=== PATIENT | male | born 1945 | race Caucasian/White ===

== ENCOUNTER 2025-01-14 20:32 | Emergency (ER) | payer OTHER ==
[~2025-01-14 20:32] MED LIST: Iopamidol 300 61% 100 ML VIAL FS ONE
[2025-01-14 22:14] LABS: #Basophils Less than 0.03 10x3/uL (0.0-0.2); #Eosinophils Less than 0.03 10x3/uL (0.0-0.5); #Monocytes 0.18 10x3/uL (0.0-1.1); #Neutrophils 7.52 10x3/uL (1.5-8.4); %Basophils 0.1 % (0.0-2.0); %Eosinophils 0.1 % (0.0-6.0); %Lymphocytes 0.8 % (18.0-47.0); %Monocytes 2.3 % (0.0-10.0); %Neutrophils 96.4 % (40.0-75.0); Hematocrit 36.9 % (38.8-50.0); Hemoglobin 12.0 g/dL (13.5-17.5); Mean Corpuscular Hemoglobin 28.6 pg (27.0-33.0); Mean Corpuscular Volume 87.9 fL (81.2-95.1); Platelet Count 266 10x3/uL (150-450); Red Blood Cell (RBC) Count 4.20 10x6/uL (4.32-5.72); White Blood Cell (WBC) Count 7.80 10x3/uL (3.5-10.5)
[2025-01-14 22:14] LABS: Actual Bicarbonate (HCO3v) 19.2 mEq/L (22-28); Analyzer IN Cardio CS ER; Base Excess -6.1 mEq/L (-2 - +2); Calcium, Ionized (venous) 1.07 mmol/L (1.16-1.32); Chloride (VBG) 101 mmol/L (98-106); Hematocrit-VBG 37 % (42.0-52.0); Hemoglobin (Hb) 12.5 g/dL (12.6-17.4); Potassium (VBG) 4.51 mmol/L (3.70-5.30); Puncture Site Other Site; RapidComm Collect By Lab; Sodium 135 mmol/L (133-146)
[2025-01-14 22:29] LABS: ALT (SGPT) 35 U/L (Less than 45); AST (SGOT) 45 U/L (11-34); Albumin 3.7 g/dL (3.1-4.5); Alkaline Phosphatase 55 U/L (40-110); Anion Gap 18 mmol/L (10-20); BUN (Urea Nitrogen) 29 mg/dL (8.4-25.7); Bilirubin, Total 0.4 mg/dL (0.3-1.2); Calc. Creatinine Clearance 0 mL/min (70-130); Calcium 8.7 mg/dL (7.8-10.44); Carbon Dioxide 18 mmol/L (23-31); Chloride 103 mmol/L (98-107); Globulin 2.5 g/dL (2.4-3.5); Glucose 314 mg/dL (83-110); Potassium 4.4 mmol/L (3.5-5.1); Sodium 135 mmol/L (136-145)
[2025-01-14] MEDS ORDERED: Cefepime 2 GM VIAL ONE (22:44)
[2025-01-14] MEDS ORDERED: Vancomycin 1.5 GRAM/300 ML BAG 1.5 GM in Premix 1 BAG IVPB SCH (23:45)
[2025-01-15] MEDS ORDERED: Acetaminophen 500 MG TAB ONE (02:02)
== END 2025-01-15 03:29 | disposition short-term general hospital (02) ==
LOC: CSHERS 20:32 → MERGE 20:32 → CSHERS 01-15 03:29
DX: R65.20 Severe sepsis without septic shock (principal); L03.113 Cellulitis of right upper limb; E11.9 Type 2 diabetes mellitus without complications
CPT/HCPCS: 36415; 36416; 80053; 82805; 83605; 85025; 87040; 96374; 96375; J0692; J2270; J3373; Q9967

== ENCOUNTER 2025-02-22 09:05 | Outpatient (CLI) | payer OTHER | END 2025-02-22 09:06 | disposition home or self-care (01) | LOC: CSHULT 09:05 | PROVIDERS: ATTEND Internal Medicine Clinical Cardiac Electrophysiology | DX: I82.623 Acute embolism and thrombosis of deep veins of upper extremity, bilateral (principal); I82.612 Acute embolism and thrombosis of superficial veins of left upper extremity ==